=== PATIENT | male | born 1945 ===

== ENCOUNTER 2018-11-23 10:26 | Inpatient (IN) | payer OTHER ==
[~2018-11-23] VITALS: Ht 165.1 cm; Wt 82.6 kg
[~2018-11-23 10:26] MED LIST: KETO10TA2 PO; LOSARTAN POTASS50 MG
[2018-11-23] MEDS ORDERED: ATORVASTATIN CA20 MG PO (11:55)
[2018-11-30] MEDS ORDERED: ELIQUIS2.5 MG PO (16:28)
[2018-11-30] MEDS ORDERED: PERCOCET 5-3251 EACH PO (16:28)
[2018-11-30] MEDS ORDERED: DUI500 PO (16:28)
== END 2018-11-30 20:29 | DRG 470 ==
LOC: SURG 11-28 05:45 → O/R 11-28 05:45 → SURH 11-28 07:00 → SURG 11-28 14:38
PROVIDERS: ADMIT Orthopaedic Surgery
PROC: 0MNP0ZZ Release Left Knee Bursa and Ligament, Open Approach (ICD-10-PCS; 2018-11-28)
PROC: 0SRD0J9 Replacement of Left Knee Joint with Synthetic Substitute, Cemented, Open Approach (ICD-10-PCS; principal; 2018-11-28 07:00)
DX: M17.12 Unilateral primary osteoarthritis, left knee (principal); D62 Acute posthemorrhagic anemia; I10 Essential (primary) hypertension

== ENCOUNTER 2022-03-04 07:30 | Inpatient (IN) | payer OTHER ==
[~2022-03-04] VITALS: Ht 162.6 cm; Wt 75.3 kg
[~2022-03-04 07:30] MED LIST changes: +ATORVASTATIN CA20 MG PO; +DUI500 PO; +ELIQUIS2.5 MG PO; +PERCOCET 5-3251 EACH PO
[2022-03-04] MEDS ORDERED: ATACAND16 MG PO (08:36)
[2022-03-04] MEDS ORDERED: ATORVAST PO (08:37)
[2022-03-09] MEDS ORDERED: ATORVASTATIN CA10 MG (11:21)
[2022-03-09] MEDS ORDERED: HYDROCHLOROTH12.5 MG (11:23)
[2022-03-11] MEDS ORDERED: ELIQUIS2.5 MG PO (15:39)
[2022-03-11] MEDS ORDERED: PERCOCET 5-3251 EACH PO (15:39)
[2022-03-11] MEDS ORDERED: DUI500 PO (15:39)
== END 2022-03-11 20:36 | DRG 470 ==
LOC: O/R 03-09 05:50 → SURH 03-09 05:50
PROVIDERS: ADMIT Orthopaedic Surgery; ATTEND Orthopaedic Surgery
PROC: 0SRC0J9 Replacement of Right Knee Joint with Synthetic Substitute, Cemented, Open Approach (ICD-10-PCS; principal; 2022-03-09 07:00)
DX: M17.11 Unilateral primary osteoarthritis, right knee (principal); D62 Acute posthemorrhagic anemia; M22.11 Recurrent subluxation of patella, right knee; L40.8 Other psoriasis; Z20.822 Contact with and (suspected) exposure to COVID-19